=== PATIENT | male | born 1990 | race Caucasian/White ===

== ENCOUNTER 2021-07-05 22:59 | Outpatient (CLI) | payer MEDICAID | END 2021-07-05 23:00 | disposition critical access hospital (66) | LOC: EMS 22:59 | DX: R53.1 Weakness (principal); R50.9 Fever, unspecified; R11.2 Nausea with vomiting, unspecified | CPT/HCPCS: A0425; A0429; A0999 ==

== ENCOUNTER 2021-07-05 23:26 | Emergency (ER) | payer BC, MEDICAID ==
--- NOTE | 2021-07-05 23:34 | ED Physician Documentation ---
History of Present Illness - Stated complaint Stated Complaint: COVID SYMPTOMS - History obtained from History obtained from: Patient - History of Present Illness Timing: How many days ago (3) Pain level now: 0 Improved by: no ameliorating factors Worsened by: no exacerbating factors - Additonal information Additional information: BIBA. Patient c/o COOK SUPERVISOR cough, nausea, vomiting. He says he is an alcoholic, drinks heavily and regularly on a daily basis as well as using kratom on a daily basis. He says he last consumed alcohol last night and last used kratom during the day yesterday. He is COVID vaccinated. He has had sweats/chills and suspects he has had fevers today but did not take his temperature at home Review of Systems Constitutional: reports: Chills, Sweats Cardiac: reports: Reviewed and negative Respiratory: reports: Cough. denies: Dyspnea, Hemoptysis GI: reports: Nausea, Vomiting. denies: Abdominal Pain Neurologic: reports: Headache. denies: Generalized weakness PD PAST MEDICAL HISTORY - Present Medications Home Medications: Ambulatory Orders Medication Instructions Recorded Confirmed Ondansetron Odt [Zofran] 4 mg TL Q6H PRN #14 tablet 07/06/21 chlordiazePOXIDE [Librium] 25 mg PO BID #12 cap 07/06/21 - Allergies Allergies/Adverse Reactions: Allergies Allergy/AdvReac Type Severity Reaction Status Date / Time No Known Drug Allergies Allergy Verified 07/05/21 23:40 - Social History Does the pt drink ETOH?: Yes PD ED PE NORMAL - Vitals Vital signs reviewed: Yes - General General: Alert and oriented X 3, No acute distress (emesis x 2 during H+P), Well developed/nourished - Neck Neck: Supple, no meningeal sign - Cardiac Cardiac: No murmur - Respiratory Respiratory: No respiratory distress, Clear bilaterally - Abdomen Abdomen: Normal bowel sounds, Soft, Non tender, Non distended - Derm Derm: Normal color, Warm and dry - Extremities Extremities: No edema - Neuro Neuro: Alert and oriented X 3, Normal speech Eye Opening: Spontaneous Motor: Obeys Commands Verbal: Oriented GCS Score: 15 PD ED PE EXPANDED - Cardiac Cardiac: Tachy, Regular Rhythm Results - Vitals Vitals: Vital Signs - 24 hr 07/06/21 07/06/21 06:00 06:07 Temperature 37 C 37 C Heart Rate 99 99 Respiratory 20 20 Rate Blood Pressure 128/71 128/71 O2 Saturation 99 99 Oxygen O2 Source Room air - Labs Labs: Laboratory Tests 07/05/21 07/05/21 07/05/21 23:38 23:54 23:54 WBC 7.4 RBC 5.38 Hgb 16.6 Hct 48.0 MCV 89.2 MCH 30.9 MCHC 34.6 RDW 13.1 Plt Count 123 L MPV 9.7 Neut # (Auto) 5.6 Lymph # (Auto) 1.2 L [place] # (Auto) 0.5 Eos # (Auto) 0.0 Baso # (Auto) 0.0 Absolute Nucleated RBC 0.00 Nucleated RBC % 0.0 Sodium 137 Potassium 4.0 Chloride 91 L Carbon Dioxide 20 L Anion Gap 26.0 H BUN 13 Creatinine 1.0 Estimated GFR (MDRD) 88 L Glucose 89 Calcium 8.5 Total Bilirubin 1.1 H AST 193 H ALT 100 H Alkaline Phosphatase 106 Total Protein 7.9 Albumin 4.6 Globulin 3.3 Albumin/Globulin Ratio 1.4 Lipase 55 H Nasal Adenovirus (PCR) NOT DETECTED Nasal B. parapertussis DNA (PCR) NOT DETECTED Nasal Coronavir 229E PCR NOT DETECTED Nasal Coronavir HKU1 PCR NOT DETECTED Nasal Coronavir NL63 PCR NOT DETECTED Nasal Coronavir OC43 PCR NOT DETECTED Nasal Enterovir/Rhinovir PCR NOT DETECTED Nasal Influenza B PCR NOT DETECTED Nasal Influenza A PCR NOT DETECTED Nasal Parainfluen 1 PCR NOT DETECTED Nasal Parainfluen 2 PCR NOT DETECTED Nasal Parainfluen 3 PCR NOT DETECTED Nasal Parainfluen 4 PCR NOT DETECTED Nasal RSV (PCR) NOT DETECTED Nasal B.pertussis DNA PCR NOT DETECTED Nasal C.pneumoniae (PCR) NOT DETECTED Sridhar Human Metapneumo PCR NOT DETECTED Nasal M.pneumoniae (PCR) NOT DETECTED Nasal SARS-CoV-2 (PCR) NOT DETECTED Ethyl Alcohol 07/05/21 23:54 WBC RBC Hgb Hct MCV MCH MCHC RDW Plt Count MPV Neut # (Auto) Lymph # (Auto) [place] # (Auto) Eos # (Auto) Baso # (Auto) Absolute Nucleated RBC Nucleated RBC % Sodium Potassium Chloride Carbon Dioxide Anion Gap BUN Creatinine Estimated GFR (MDRD) Glucose Calcium Total Bilirubin AST ALT Alkaline Phosphatase Total Protein Albumin Globulin Albumin/Globulin Ratio Lipase Nasal Adenovirus (PCR) Nasal B. parapertussis DNA (PCR) Nasal Coronavir 229E PCR Nasal Coronavir HKU1 PCR Nasal Coronavir NL63 PCR Nasal Coronavir OC43 PCR Nasal Enterovir/Rhinovir PCR Nasal Influenza B PCR Nasal Influenza A PCR Nasal Parainfluen 1 PCR Nasal Parainfluen 2 PCR Nasal Parainfluen 3 PCR Nasal Parainfluen 4 PCR Nasal RSV (PCR) Nasal B.pertussis DNA PCR Nasal C.pneumoniae (PCR) Sridhar Human Metapneumo PCR Nasal M.pneumoniae (PCR) Nasal SARS-CoV-2 (PCR) Ethyl Alcohol 385.8 PD MEDICAL DECISION MAKING - ED course Complexity details: reviewed results, re-evaluated patient, considered differential, d/w patient ED course: Patient presents with nausea, vomiting, COOK SUPERVISOR cough. He develops tremulousness during ED stay that improves with benzodiazepines (initially IV lorazepam, transitioned to PO librium). His nausea and vomiting also would improve with benzodiazepines and antinauseants (zofran, phenergan). he is given 2 liters IV NS during ED stay. His blood work is notable for high anion gap with normal serum glucose, mild elevations in bilirubin, AST, ALT, and lipase. His blood ethanol level is markedly elevated at 385. Respiratory panel is negative, including COVID. He initially indicated to me that he is interested in meeting with SW to discuss treatment options, but later in stay he was declining this service and was asking to be discharged home. His symptoms (tremulousness, n/v) were episodic throughout ED but, as noted above, were controlled with repeated doses of medications (as above). He is AAOx3. He describes having been through alcohol withdrawal many times and expresses understanding of return precautions as well as importance of seeking further treatment for his addictions (alcohol, kratom). Prescriptions for zofran and chlordiazepoxide are submitted to [facility] in [place]. I instructed him to not drink any alcohol if he is taking the librium, to follow the taper provided in his discharge instructions, and to return to the ED if the medication is not adequately controlling his symptoms. Departure - Departure Disposition: 01 Home, Self Care Clinical Impression: Alcohol withdrawal Qualifiers: Complication of substance-induced condition: uncomplicated Qualified Code(s): F10.230 - Alcohol dependence with withdrawal, uncomplicated Condition: Good Instructions: ED Withdrawal Alcohol Follow-Up: Shamika Pepe DO [Provider Admit Priv/Credential] - Prescriptions: chlordiazePOXIDE [Librium] 25 mg PO BID #12 cap Ondansetron Odt [Zofran] 4 mg TL Q6H PRN #14 tablet PRN Reason: Nausea / Vomiting Comments: Prescriptions for ondansetron (antinausea medication) and chlordiazepoxide (helps with withdrawal symptoms) have been electronically submitted to [facility] pharmacy in [place] TAKE THE CHLORDIAZEPOXIDE (LIBRIUM) FOLLOWS: 2 TABLETS BY MOUTH TWICE PER DAY FOR TWO DAYS, THEN 1 TABLET BY MOUTH TWICE PER DAY FOR TWO DAYS. DO NOT DRINK ANY ALCOHOL WHILE TAKING THIS MEDICATION. Discharge Date/Time: 07/06/21 08:23
[2021-07-06] MEDS: SODIUM CHLORIDE 0.9% 1,000 ML IV STA ×2 (00:17→00:53)
[2021-07-06] MEDS: ONDANSETRON 4 MG/2 ML VIAL IVP STA ×2 (00:17→02:15)
[2021-07-06 00:20] LABS: BASOPHILS % (AUTO) 0.5 %; EOSINOPHILS % (AUTO) 0.1 %; HGB - HEMOGLOBIN 16.6 g/dL (14.0-18.0); LYMPHOCYTES # (AUTO) 1.2 10^3/uL (1.5-3.5); LYMPHOCYTES % (AUTO) 15.9 %; MEAN CORPUSCULAR HEMOGLOBIN 30.9 pg (27.0-31.0); MEAN CORPUSCULAR HGB CONC 34.6 g/dL (32.0-36.0); MEAN CORPUSCULAR VOLUME 89.2 fL (80.0-94.0); MEAN PLATELET VOLUME 9.7 fL (7.4-11.4); MONOCYTES # (AUTO) 0.5 10^3/uL (0.0-1.0); MONOCYTES % (AUTO) 7.3 %; NEUTROPHILS # (AUTO) 5.6 10^3/uL (1.5-6.6); NEUTROPHILS % (AUTO) 75.8 %; PLT - PLATELET COUNT 123 10^3/uL (130-450); RED BLOOD COUNT 5.38 10^6/uL (4.70-6.10); RED CELL DISTRIBUTION WIDTH 13.1 % (12.0-15.0); WHITE BLOOD COUNT 7.4 x10^3/uL (4.8-10.8)
[2021-07-06 00:29] LABS: ALBUMIN 4.6 g/dL (3.2-5.5); ALBUMIN/GLOBULIN RATIO 1.4 (1.0-2.2); BILIRUBIN,TOTAL 1.1 mg/dL (0.2-1.0); CALCIUM 8.5 mg/dL (8.5-10.3); TOTAL PROTEIN 7.9 g/dL (6.7-8.2)
[2021-07-06] MEDS ORDERED: PROMETHAZINE 25 MG/1 ML VIAL ONE (00:46)
[2021-07-06] MEDS: LORazepam 2 MG/ML VIAL IVP STA ×2 (00:52→02:09)
[2021-07-06] MEDS: PROMETHAZINE INJ 25 MG in SODIUM CHLORIDE 0.9% 50 ML IV STA (00:53)
[2021-07-06 00:57] LABS: B. PARAPERTUSSIS- RESP PCR PAN NOT DETECTED; B. PERTUSSIS- RESP PCR PANEL NOT DETECTED; C. PNEUMONIAE- RESP PCR PANEL NOT DETECTED; CORONAVIRUS 229E-RESP PCR NOT DETECTED; CORONAVIRUS HKU1-RESP PCR NOT DETECTED; CORONAVIRUS NL63-RESP PCR NOT DETECTED; CORONAVIRUS OC43-RESP PCR NOT DETECTED; HUMAN METAPNEUMOVIRUS NOT DETECTED; INFLUENZA A- RESP PCR PANEL NOT DETECTED; INFLUENZA B - RESP PCR PANEL NOT DETECTED; M. PNEUMONIAE- RESP PCR PANEL NOT DETECTED; PARAINFLUENZA VIRUS 1 NOT DETECTED; PARAINFLUENZA VIRUS 2 NOT DETECTED; PARAINFLUENZA VIRUS 3 NOT DETECTED; PARAINFLUENZA VIRUS 4 NOT DETECTED; RHINOVIRUS/ENTEROVIRUS NOT DETECTED; RSV- RESP PCR PANEL NOT DETECTED; SARS-CoV-2 -RESP PCR PANEL NOT DETECTED
[2021-07-06] MEDS: chlordiazePOXIDE 25 MG CAPSULE PO STA ×3 (03:53→07:25)
[2021-07-06 06:07] VITALS: BP 128/71
[2021-07-06] MEDS: ONDANSETRON ODT 4 MG TABLET TL STA (07:24)
== END 2021-07-06 08:23 | disposition home or self-care (01) ==
LOC: EDUNIT# → ED 23:26
DX: F10.230 Alcohol dependence with withdrawal, uncomplicated (principal); Z20.822 Contact with and (suspected) exposure to COVID-19
CPT/HCPCS: 0202U; 36415; 80053; 80320; 83690; 85025; 96365; 96375; 96376; 99283; A9270; J2060; J7040; Q0162

== ENCOUNTER 2021-10-08 10:56 | Emergency (ER) | payer MEDICAID ==
[2021-10-08 11:08] VITALS: BP 146/93
--- NOTE | 2021-10-08 11:38 | ED Physician Documentation ---
History of Present Illness - Stated complaint Stated Complaint: RX REFILL - Chief complaint Chief Complaint: General - History obtained from History obtained from: Patient - History of Present Illness Timing: Today Pain level max: 0 Pain level now: 0 - Additonal information Additional information: Patient is a 31-year-old male who presents to the emergency department requesting a refill of his Prozac. 40 mg p.o. daily. He has 2 pills left. Otherwise asymptomatic. Nothing makes it better or worse. Review of Systems Constitutional: denies: Fever, Chills GI: denies: Nausea, Vomiting, Diarrhea Skin: denies: Rash Musculoskeletal: denies: Neck pain, Back pain Neurologic: denies: Headache PD PAST MEDICAL HISTORY - Past Medical History Cardiovascular: Hypertension - Past Surgical History Past Surgical History: No - Present Medications Home Medications: Ambulatory Orders Medication Instructions Recorded Confirmed Ondansetron Odt [Zofran] 4 mg TL Q6H PRN #14 tablet 07/06/21 chlordiazePOXIDE [Librium] 25 mg PO BID #12 cap 07/06/21 Fluoxetine HCl [Prozac] 40 mg PO DAILY #30 cap 10/08/21 - Allergies Allergies/Adverse Reactions: Allergies Allergy/AdvReac Type Severity Reaction Status Date / Time No Known Drug Allergies Allergy Verified 10/08/21 11:08 - Social History Does the pt smoke?: Yes Smoking Status: Current every day smoker Does the pt drink ETOH?: Yes Does the pt have substance abuse?: Yes - Immunizations Immunizations are current?: Yes PD ED PE NORMAL - Vitals Vital signs reviewed: Yes - General General: Alert and oriented X 3, No acute distress - HEENT HEENT: Moist mucous membranes - Neck Neck: Supple, no meningeal sign - Cardiac Cardiac: RRR - Respiratory Respiratory: No respiratory distress, Clear bilaterally - Derm Derm: Warm and dry - Neuro Neuro: Alert and oriented X 3 - Psych Psych: Normal mood, Normal affect Results - Vitals Vitals: Vital Signs - 24 hr 10/08/21 11:04 Temperature 36.3 C L Heart Rate 89 Respiratory 18 Rate Blood Pressure 146/93 H O2 Saturation 98 Oxygen O2 Source Room air PD MEDICAL DECISION MAKING - ED course Complexity details: considered differential, d/w patient ED course: Patient's medication was refilled. He will follow up with his doctor for further refills. Patient asymptomatic otherwise. This document was made in part using voice recognition software. While efforts are made to proofread this document, sound alike and grammatical errors may occur. Departure - Departure Disposition: 01 Home, Self Care Clinical Impression: Medication refill Condition: Good Instructions: ED Screening Exam Medical Nonurgent Follow-Up: [facility] [Provider Group] [facility] [Provider Group] Prescriptions: Fluoxetine HCl [Prozac] 40 mg PO DAILY #30 cap Comments: Your prescription was sent to [facility] in [place]. Please follow-up with your doctor for further medication refills. A list of clinics was given to you today. Discharge Date/Time: 10/08/21 11:47
== END 2021-10-08 11:47 | disposition home or self-care (01) ==
LOC: ED 10:56
DX: Z76.0 Encounter for issue of repeat prescription (principal); F17.200 Nicotine dependence, unspecified, uncomplicated
CPT/HCPCS: 99281

== ENCOUNTER 2021-10-13 15:08 | Emergency (ER) | payer MEDICAID ==
[2021-10-13 15:18] VITALS: BP 141/84
--- NOTE | 2021-10-13 15:28 | ED Physician Documentation ---
PD HPI MHE - Stated complaint Stated Complaint: MHE - Chief complaint Chief Complaint: MHE - History obtained from History obtained from: Patient - History of Present Illness Primary symptom: Anxiety, Out of meds (The patient had long history of alcoholism and was recently in alcohol detox and [facility] and discharged 4 days 10 days ago. Prescribed gabapentin for a week. He states it did help his anxi ety and curb his alcohol desires. He was given a follow-up referral but unable to get an appointment as yet.) Timing - onset: How many days ago Contributing factors: Substance abuse - ETOH (with recent detox) Similar symptoms before: Diagnosis (anxiety and alcoholism, depression) Recently seen: Clinic Review of Systems Constitutional: denies: Fever Nose: denies: Rhinorrhea / runny nose, Congestion Throat: denies: Sore throat Respiratory: denies: Cough GI: denies: Abdominal Pain, Nausea, Vomiting, Diarrhea Psychiatric: reports: Anxiety, Insomnia. denies: Depressed, Suicidal PD PAST MEDICAL HISTORY - Past Medical History Cardiovascular: Hypertension Respiratory: None Neuro: None Endocrine/Autoimmune: None GI: None : None HEENT: None Psych: Depression, Anxiety, Other Musculoskeletal: None Derm: None - Past Surgical History Past Surgical History: No Ortho: Other - Present Medications Home Medications: Ambulatory Orders Medication Instructions Recorded Confirmed Fluoxetine HCl [Prozac] 40 mg PO DAILY #30 cap 10/08/21 10/13/21 Buprenorphine HCl/Naloxone HCl 1 film ORAL BID 10/13/21 10/13/21 [Suboxone 8 mg-2 mg Sl Film] Gabapentin [Neurontin] 300 mg PO TID 20 Days #60 cap 10/13/21 - Allergies Allergies/Adverse Reactions: Allergies Allergy/AdvReac Type Severity Reaction Status Date / Time No Known Drug Allergies Allergy Verified 10/13/21 15:12 - Social History Does the pt smoke?: No Smoking Status: Former smoker Does the pt drink ETOH?: No Does the pt have substance abuse?: No - Immunizations Immunizations are current?: Yes PD ED PE NORMAL - Vitals Vital signs reviewed: Yes - General General: Alert and oriented X 3, Well developed/nourished, Other (somewhat anxious. ) - Cardiac Cardiac: RRR, No murmur - Respiratory Respiratory: Clear bilaterally - Derm Derm: Normal color, Warm and dry - Extremities Extremities: Normal ROM s pain - Neuro Neuro: Alert and oriented X 3, No motor deficit, Normal speech Results - Vitals Vitals: Vital Signs - 24 hr 10/13/21 15:13 Temperature 36 C L Heart Rate 74 Respiratory 18 Rate Blood Pressure 141/84 H O2 Saturation 100 Oxygen O2 Source Room air PD MEDICAL DECISION MAKING - ED course Complexity details: reviewed old records ([facility] reviewed with suboxone and other anxiety meds through primary providers only. ), considered differential, d/w patient Departure - Departure Disposition: Home, Self Care Clinical Impression: Anxiety, Medication refill Condition: Stable Record reviewed to determine appropriate education?: Yes Follow-Up: [facility] [Provider Group] Prescriptions: Gabapentin [Neurontin] 300 mg PO TID 20 Days #60 cap Comments: I can write a prescription for you for the gabapentin 300 mg 3 times a day since it was doing okay for you for your withdrawal and anxiety. Try to stay with those doses. If you are still feeling anxious or having trouble sleeping at night you can add in [id number] Benadryl 25 mg if needed. Stay well-hydrated. Continue your other usual medications. Congratulations on being sober and continue to avoid alcohol. Follow-up with the referral given to you from the detox facility. I also wrote the name of one of the other provider groups on the [facility]. Call and see if they have any appointments or take your insurance. They do have an office on the [facility] in [place] as well. I transmitted your prescriptions to [facility] in [place].
[2021-10-13] MEDS: GABAPENTIN 100 MG CAPSULE PO STA (16:24)
== END 2021-10-13 16:27 | disposition home or self-care (01) ==
LOC: ED 15:08
DX: F41.9 Anxiety disorder, unspecified (principal); Z76.0 Encounter for issue of repeat prescription; Z87.891 Personal history of nicotine dependence
CPT/HCPCS: 99282; A9270

== ENCOUNTER 2021-10-14 11:18 | Emergency (ER) | payer MEDICAID ==
[2021-10-14 11:33] VITALS: BP 122/75
--- NOTE | 2021-10-14 11:52 | ED Physician Documentation ---
History of Present Illness - Stated complaint Stated Complaint: ANX,MED REFILL - Chief complaint Chief Complaint: General - History obtained from History obtained from: Patient - History of Present Illness Timing: Yesterday - Additonal information Additional information: 31-year-old male with a history of alcohol abuse has gone through treatment and was prescribed gabapentin at discharge. He is on suboxone and has a prescriber who asked him to take his usual dose of the gabapentin. Patient is has usually taken 600 mg tablets and has taken 1800 to 2400 mg. He was prescribed 300 mg daily. He ran out of this prescription early. He has had success at using gabapentin for treatment of anxiety and he came to the emergency department yesterday to see Dr. Mccall and Dr. Mccall refilled a prescription for gabapentin for the patient. The pharmacy refused to fill the prescription as he had run out early from his previous prescription. The patient indicates that this medication has been effective at help with anxiety as well as helping with cravings for alcohol. He is currently sober 14 days and wants to continue sobriety. Review of Systems Constitutional: denies: Fever Ears: denies: Ear pain Nose: denies: Congestion Throat: denies: Sore throat Respiratory: denies: Cough GI: denies: Vomiting PD PAST MEDICAL HISTORY - Past Medical History Cardiovascular: Hypertension Respiratory: None Neuro: None Endocrine/Autoimmune: None GI: None : None HEENT: None Psych: Depression, Anxiety, Other Musculoskeletal: None Derm: None - Past Surgical History Past Surgical History: No Ortho: Other - Present Medications Home Medications: Ambulatory Orders Medication Instructions Recorded Confirmed Fluoxetine HCl [Prozac] 40 mg PO DAILY #30 cap 10/08/21 10/13/21 Buprenorphine HCl/Naloxone HCl 1 film ORAL BID 10/13/21 10/13/21 [Suboxone 8 mg-2 mg Sl Film] Gabapentin [Neurontin] 300 mg PO TID 20 Days #60 cap 10/13/21 - Allergies Allergies/Adverse Reactions: Allergies Allergy/AdvReac Type Severity Reaction Status Date / Time No Known Drug Allergies Allergy Verified 10/14/21 11:33 - Social History Does the pt smoke?: No Smoking Status: Never smoker Does the pt drink ETOH?: No Does the pt have substance abuse?: No - Immunizations Immunizations are current?: Yes PD ED PE NORMAL - Vitals Vital signs reviewed: Yes (Normal) - General General: Alert and oriented X 3, No acute distress, Well developed/nourished - HEENT HEENT: Atraumatic, PERRL, EOMI - Neck Neck: Supple, no meningeal sign - Cardiac Cardiac: RRR, No murmur - Respiratory Respiratory: No respiratory distress, Clear bilaterally - Abdomen Abdomen: Soft, Non tender - Back Back: No CVA TTP, No spinal TTP - Derm Derm: Normal color, Warm and dry, No rash - Extremities Extremities: No deformity, No edema - Neuro Neuro: Alert and oriented X 3, court commissioner 2-12 intact, No motor deficit, No sensory deficit, Normal speech Eye Opening: Spontaneous Motor: Obeys Commands Verbal: Oriented GCS Score: 15 - Psych Psych: Normal mood, Normal affect Results - Vitals Vitals: Vital Signs - 24 hr 10/14/21 11:29 Temperature 36.5 C Heart Rate 71 Respiratory 18 Rate Blood Pressure 122/75 O2 Saturation 100 Oxygen O2 Source Room air PD MEDICAL DECISION MAKING - ED course Complexity details: considered differential, d/w patient ED course: 31-year-old male who was used to a higher dose of gabapentin has run out of his prescription early that was inappropriately prescribed to begin with. The patient was unable to get the medication through the pharmacy because of this issue and I have been able to contact the pharmacist to explain the situation and the appropriateness of the prescription. They will work on filling the prescription for the patient. Departure - Departure Disposition: 01 Home, Self Care Clinical Impression: Medication refill, Anxiety Instructions: ED Stress React Follow-Up: [facility] [Provider Group] [facility] [Provider Group] Comments: Ryan I have spoken with the pharmacist at [facility] and they are working on filling your prescription for you. Discharge Date/Time: 10/14/21 12:05
== END 2021-10-14 12:05 | disposition home or self-care (01) ==
LOC: ED 11:18
DX: Z76.0 Encounter for issue of repeat prescription (principal); I10 Essential (primary) hypertension; F41.9 Anxiety disorder, unspecified
CPT/HCPCS: 99281

== ENCOUNTER 2021-10-19 13:49 | Emergency (ER) | payer MEDICAID ==
[2021-10-19 13:56] VITALS: BP 130/70
[2021-10-19] MEDS ORDERED: AMOX/CLAV 875 MG/125 MG TABLET PO STA (14:42)
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
== END 2021-10-19 14:53 | disposition home or self-care (01) ==
LOC: ED 13:49
DX: T22.20XA Burn of second degree of shoulder and upper limb, except wrist and hand, unspecified site, initial encounter (principal); T79.9XXA Unspecified early complication of trauma, initial encounter; L03.114 Cellulitis of left upper limb; I10 Essential (primary) hypertension
CPT/HCPCS: 99282; A9270

== ENCOUNTER 2021-11-14 18:35 | Emergency (ER) | payer MEDICAID ==
[2021-11-14 18:48] VITALS: BP 169/97
[2021-11-14] MEDS ORDERED: FLUoxetine 10 MG CAPSULE PO STA (19:00)
--- NOTE | 2021-11-14 19:02 | ED Physician Documentation ---
History of Present Illness - Stated complaint Stated Complaint: MED REFILL - Chief complaint Chief Complaint: General - History obtained from History obtained from: Patient - Additonal information Additional information: 31-year-old gentleman ran out of Prozac 2 nights ago and requests a refill. He is asymptomatic without SI or HI. Also wonders if he could have a refill for gabapentin. Review of Systems Constitutional: denies: Fever, Chills Cardiac: denies: Chest pain / pressure, Palpitations Neurologic: denies: Generalized weakness, Numbness PD PAST MEDICAL HISTORY - Past Medical History Cardiovascular: Hypertension Respiratory: None Neuro: None Endocrine/Autoimmune: None GI: None : None HEENT: None Psych: Depression, Anxiety, Other Musculoskeletal: None Derm: None - Past Surgical History Past Surgical History: No Ortho: Other - Present Medications Home Medications: Ambulatory Orders Medication Instructions Recorded Confirmed Fluoxetine HCl [Prozac] 40 mg PO DAILY #30 cap 10/08/21 10/19/21 Buprenorphine HCl/Naloxone HCl 1 film ORAL BID 10/13/21 10/19/21 [Suboxone 8 mg-2 mg Sl Film] Amox/Clav 875/125 [Augmentin] 1 each PO Q12H #20 tablet 10/19/21 FLUoxetine [PROzac] 40 mg PO DAILY #60 cap 11/14/21 - Allergies Allergies/Adverse Reactions: Allergies Allergy/AdvReac Type Severity Reaction Status Date / Time No Known Drug Allergies Allergy Verified 11/14/21 18:46 - Social History Does the pt smoke?: No Smoking Status: Never smoker Does the pt drink ETOH?: No Does the pt have substance abuse?: No - Immunizations Immunizations are current?: Yes PD ED PE NORMAL - Vitals Vital signs reviewed: Yes - General General: Alert and oriented X 3, No acute distress - Neck Neck: Supple, no meningeal sign, No bony TTP - Neuro Neuro: Alert and oriented X 3, 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 I did give him a refill of his Prozac and he is encouraged to seek primary care follow-up for further refills and to establish routine care. Departure - Departure Disposition: Home, Self Care Clinical Impression: Medication refill, Anxiety Condition: Good Record reviewed to determine appropriate education?: Yes Instructions: Fluoxetine capsules or tablets Depression/Mood Disorders Follow-Up: Daljit Gonzalez MD [Provider Admit Priv/Credential] - Prescriptions: FLUoxetine [PROzac] 40 mg PO DAILY #60 cap Comments: I sent the prescription to [facility] in [place]. Do your best to establish with a primary care physician. I put the name of the physician doing ER follow- ups for this coming week on this set of discharge instructions and you can call for an appointment. Return for new or worsening symptoms. As discussed by policy we do not refill some medications and gabapentin is 1 of those.
== END 2021-11-14 19:07 | disposition home or self-care (01) ==
LOC: ED 18:35
DX: Z76.0 Encounter for issue of repeat prescription (principal); F41.9 Anxiety disorder, unspecified
CPT/HCPCS: 99281; A9270

== ENCOUNTER 2021-12-14 09:37 | Emergency (ER) | payer MEDICAID ==
--- OUTSIDE RECORDS SUMMARY | 2021-12-14 09:48 | EXTERNAL MEDICAL SUMMARY RPT | Continuity of Care Document ---
:1990 Author Organization [facility] Address [address] [phone] Phone Allergies No information. Encounters No information. Medications No information. Problems date description facility [id number] Detox Evaluation [facility] [id number] Alcohol Intoxication [facility] Results No information.
[2021-12-14 09:52] VITALS: BP 134/85
--- NOTE | 2021-12-14 10:33 | ED Physician Documentation ---
History of Present Illness - Stated complaint Stated Complaint: PRESCRIPTION REFILL - Chief complaint Chief Complaint: General - Additonal information Additional information: Patient is 31-year-old male with past medical significant for major depressive disorder, alcohol abuse presenting to the emergency department requesting medication refill. Reports has been having a difficult time establishing himself with primary care due to changes in his insurance provider. Was seen here for similar symptoms and requesting medication refill October 08, October 13, October 14, November 14. Denies SI, HI or other acute complaints at this time. Review of Systems Ten Systems: 10 systems reviewed and negative Constitutional: denies: Fever GI: denies: Abdominal Pain Psychiatric: denies: Depressed, Suicidal PD PAST MEDICAL HISTORY - Past Medical History Past Medical History: Yes Cardiovascular: Hypertension Respiratory: None Neuro: None Endocrine/Autoimmune: None GI: None : None HEENT: None Psych: Depression, Anxiety, Other Musculoskeletal: None Derm: None - Past Surgical History Past Surgical History: No Ortho: Other - Present Medications Home Medications: Ambulatory Orders Medication Instructions Recorded Confirmed Fluoxetine HCl [Prozac] 40 mg PO DAILY #30 cap 10/08/21 12/14/21 Buprenorphine HCl/Naloxone HCl 1 film ORAL BID 10/13/21 12/14/21 [Suboxone 8 mg-2 mg Sl Film] Fluoxetine HCl [Prozac] 40 mg PO DAILY #30 cap 12/14/21 traZODone [Desyrel] 50 mg PO HS PRN 12/14/21 12/14/21 - Allergies Allergies/Adverse Reactions: Allergies Allergy/AdvReac Type Severity Reaction Status Date / Time No Known Drug Allergies Allergy Verified 12/14/21 09:49 - Social History Does the pt smoke?: No Smoking Status: Never smoker Does the pt drink ETOH?: No Does the pt have substance abuse?: No - Immunizations Immunizations are current?: Yes PD ED PE NORMAL - General General: Alert and oriented X 3 - HEENT HEENT: Atraumatic - Neck Neck: Supple, no meningeal sign - Respiratory Respiratory: No respiratory distress - Male Male : Deferred - Rectal Rectal: Deferred - Derm Derm: Normal color - Extremities Extremities: No deformity - Neuro Neuro: Alert and oriented X 3, 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 Requests refill of his previously prescribed Prozac. Denied any other acute complaints. Denied suicidal or homicidal ideation. Has been seen at the facility multiple times for similar presentations. Strongly encouraged him to establish himself with a primary care doctor. Will discharge with a refill for his regularly prescribed Prozac. Otherwise clear return precautions and follow-up instructions given prior to discharge. Departure - Departure Disposition: 01 Home, Self Care Clinical Impression: Medication refill Prescriptions: Fluoxetine HCl [Prozac] 40 mg PO DAILY #30 cap Comments: Thank you for allowing us to care for you today at [facility]. Your prescription was sent to [facility]. Please continue to work towards establishing yourself with a primary care doctor.If anytime you have any new or worsening symptoms please not hesitate to return.
== END 2021-12-14 11:29 | disposition home or self-care (01) ==
LOC: ED 09:37
DX: Z76.0 Encounter for issue of repeat prescription (principal)
CPT/HCPCS: 99281

== ENCOUNTER 2022-01-15 15:39 | Outpatient (CLI) | payer MEDICAID ==
[2022-01-15 18:52] LABS: BASOPHILS % (AUTO) 0.8 %; HCT - HEMATOCRIT 44.3 % (42.0-52.0); HGB - HEMOGLOBIN 14.8 g/dL (14.0-18.0); LYMPHOCYTES # (AUTO) 1.4 10^3/uL (1.5-3.5); LYMPHOCYTES % (AUTO) 35.9 %; MEAN CORPUSCULAR HEMOGLOBIN 29.4 pg (27.0-31.0); MEAN CORPUSCULAR HGB CONC 33.4 g/dL (32.0-36.0); MEAN CORPUSCULAR VOLUME 88.1 fL (80.0-94.0); MONOCYTES # (AUTO) 0.3 10^3/uL (0.0-1.0); MONOCYTES % (AUTO) 8.6 %; NEUTROPHILS # (AUTO) 2.1 10^3/uL (1.5-6.6); NEUTROPHILS % (AUTO) 53.4 %; PLT - PLATELET COUNT 172 10^3/uL (130-450); RED BLOOD COUNT 5.03 10^6/uL (4.70-6.10); RED CELL DISTRIBUTION WIDTH 12.2 % (12.0-15.0)
[2022-01-15 19:07] LABS: ALBUMIN 4.7 g/dL (3.2-5.5); ALBUMIN/GLOBULIN RATIO 1.7 (1.0-2.2); BILIRUBIN,TOTAL 0.5 mg/dL (0.2-1.0); CALCIUM 8.8 mg/dL (8.5-10.3); POTASSIUM 4.2 mmol/L (3.5-5.0); TOTAL PROTEIN 7.4 g/dL (6.7-8.2)
== END 2022-01-15 23:59 | disposition home or self-care (01) ==
LOC: LAB.S 15:39
PROVIDERS: ATTEND Physician Assistant Medical
DX: Z51.81 Encounter for therapeutic drug level monitoring (principal); Z79.899 Other long term (current) drug therapy
CPT/HCPCS: 36415; 80053; 85025

== ENCOUNTER 2022-05-20 05:30 | Outpatient (CLI) | payer MEDICAID | END 2022-05-20 05:31 | disposition critical access hospital (66) | LOC: EMS 05:30 | DX: R53.81 Other malaise (principal); R63.8 Other symptoms and signs concerning food and fluid intake | CPT/HCPCS: A0425; A0429; A0999 ==

== ENCOUNTER 2022-05-20 06:03 | Emergency (ER) | payer MEDICAID ==
[2022-05-20 07:08] LABS: BASOPHILS # (AUTO) 0.1 10^3/uL (0.0-0.1); BASOPHILS % (AUTO) 0.8 %; EOSINOPHILS # (AUTO) 0.1 10^3/uL (0.0-0.7); HCT - HEMATOCRIT 47.2 % (42.0-52.0); HGB - HEMOGLOBIN 16.3 g/dL (14.0-18.0); LYMPHOCYTES # (AUTO) 1.3 10^3/uL (1.5-3.5); LYMPHOCYTES % (AUTO) 21.2 %; MEAN CORPUSCULAR HEMOGLOBIN 28.6 pg (27.0-31.0); MEAN CORPUSCULAR HGB CONC 34.5 g/dL (32.0-36.0); MEAN CORPUSCULAR VOLUME 82.8 fL (80.0-94.0); MEAN PLATELET VOLUME 9.3 fL (7.4-11.4); MONOCYTES # (AUTO) 0.4 10^3/uL (0.0-1.0); NEUTROPHILS # (AUTO) 4.3 10^3/uL (1.5-6.6); NEUTROPHILS % (AUTO) 70.8 %; PLT - PLATELET COUNT 179 10^3/uL (130-450); RED CELL DISTRIBUTION WIDTH 12.5 % (12.0-15.0); WHITE BLOOD COUNT 6.1 x10^3/uL (4.8-10.8)
[2022-05-20 07:16] LABS: ALBUMIN/GLOBULIN RATIO 1.3 (1.0-2.2); BILIRUBIN,TOTAL 0.8 mg/dL (0.2-1.0); CALCIUM 8.6 mg/dL (8.5-10.3); CREATININE 0.8 mg/dL (0.6-1.2); MAGNESIUM 2.1 mg/dL (1.7-2.8); POTASSIUM 4.1 mmol/L (3.5-5.0)
[2022-05-20] MEDS ORDERED: THIAMINE INJ 100 MG, MAGNESIUM SULFATE 2 GM, MULTIVITAMIN 10 ML, FOLIC ACID INJ 1 MG in... IV ONE ×5 (07:27)
[2022-05-20] MEDS ORDERED: DEXAMETHASONE 10 MG/ML VIAL IVP STA (07:29)
--- NOTE | 2022-05-20 07:33 | ED Physician Documentation ---
History of Present Illness - Stated complaint Stated Complaint: FENTANYL W/D - Chief complaint Chief Complaint: General - History obtained from History obtained from: Patient - History of Present Illness Timing: How many days ago (4) - Additonal information Additional information: 31-year-old Ryan Padron has had a problem with narcotic use for a number of years and he has been on Suboxone and he has been through treatment. He has recently had a relapse and has been using fentanyl. He discontinued the use of the Suboxone while he was using the fentanyl and when he decided to quit he called his prescriber who recommended he take small amounts of Suboxone. He feels he might of taken too much. He does not feel well. He does not have a specific plan for entering treatment. He has not eaten in 4 days. He denies any nausea vomiting diarrhea or sweats associated with this past 4 days. He has not otherwise been ill. Review of Systems Constitutional: reports: Fatigue. denies: Fever, Chills Eyes: denies: Decreased vision Ears: denies: Ear pain Nose: denies: Rhinorrhea / runny nose, Congestion Throat: denies: Sore throat Cardiac: denies: Chest pain / pressure, Palpitations, Pedal edema, Calf pain Respiratory: denies: Dyspnea, Cough, Wheezing GI: denies: Abdominal Pain, Nausea, Vomiting, Constipation, Diarrhea : denies: Dysuria, Frequency Skin: denies: Rash Musculoskeletal: denies: Neck pain, Back pain, Extremity pain Neurologic: reports: Headache. denies: Generalized weakness, Focal weakness, Numbness, Difficulty speaking, Head injury, LOC PD PAST MEDICAL HISTORY - Past Medical History Cardiovascular: Hypertension Respiratory: None Neuro: None Endocrine/Autoimmune: None GI: None : None HEENT: None Psych: Depression, Anxiety, Other Musculoskeletal: Other Derm: None - Past Surgical History Past Surgical History: Yes Ortho: Other - Present Medications Home Medications: Ambulatory Orders Medication Instructions Recorded Confirmed Fluoxetine HCl [Prozac] 40 mg PO DAILY #30 cap 12/14/21 04/16/22 Buprenorphine HCl/Naloxone HCl 04/16/22 [Suboxone 8 mg-2 mg Sl Film] Buspirone HCl 10 mg ORAL DAILY 04/16/22 04/16/22 hydrOXYzine HCL [Hydroxyzine HCl] 50 mg ORAL DAILY 08/06/22 08/06/22 Baclofen [Lioresal] 10 mg PO TID #11 tablet 04/18/22 chlordiazePOXIDE [Librium] 25 mg PO Q6H #15 cap 05/20/22 - Allergies Allergies/Adverse Reactions: Allergies Allergy/AdvReac Type Severity Reaction Status Date / Time No Known Drug Allergies Allergy Verified 04/16/22 23:01 - Social History Does the pt smoke?: No Smoking Status: Never smoker Does the pt drink ETOH?: No Does the pt have substance abuse?: No - Immunizations Immunizations are current?: Yes - POLST Patient has POLST: No PD ED PE NORMAL - Vitals Vital signs reviewed: Yes (bradycardic) - General General: Well developed/nourished, Other (Sommulent 31y/o male answers appropriately, has Flattened affect, delay in execution of motor commands is minor as well as speech latency.) - HEENT HEENT: PERRL, EOMI, Other (Dry mucous membranes and abrasions to the forehead appears several days old) - Neck Neck: Supple, no meningeal sign, No bony TTP - Cardiac Cardiac: RRR, No murmur - Respiratory Respiratory: No respiratory distress, Clear bilaterally - Abdomen Abdomen: Normal bowel sounds, Soft, Non tender, Non distended, No organomegaly - Back Back: No CVA TTP, No spinal TTP - Derm Derm: Normal color, Warm and dry, No rash - Extremities Extremities: No deformity, No edema - 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, No motor deficit, No sensory deficit, Other (Speech latency is present less than 2 seconds) Eye Opening: Spontaneous Motor: Obeys Commands Verbal: Oriented GCS Score: 15 - Psych Psych: Other (Mood is withdrawn and the affect is flat) Results - Vitals Vitals: Vital Signs - 24 hr 05/20/22 05/20/22 05/20/22 06:05 06:13 06:14 Heart Rate 55 L 56 L 55 L Respiratory 18 15 16 Rate Blood Pressure 125/66 125/66 125/66 O2 Saturation 95 93 94 05/20/22 05/20/22 05/20/22 06:50 08:02 11:47 Heart Rate 55 L 57 L 75 Respiratory 16 15 17 Rate Blood Pressure 106/50 L 122/70 124/75 O2 Saturation 97 96 99 Oxygen O2 Source Room air - Labs Labs: Laboratory Tests 05/20/22 05/20/22 06:49 06:49 WBC 6.1 RBC 5.70 Hgb 16.3 Hct 47.2 MCV 82.8 MCH 28.6 MCHC 34.5 RDW 12.5 Plt Count 179 MPV 9.3 Neut # (Auto) 4.3 Lymph # (Auto) 1.3 L Williams # (Auto) 0.4 Eos # (Auto) 0.1 Baso # (Auto) 0.1 Absolute Nucleated RBC 0.00 Nucleated RBC % 0.0 Sodium 135 Potassium 4.1 Chloride 94 L Carbon Dioxide 21 Anion Gap 20.0 H BUN 15 Creatinine 0.8 Estimated GFR (MDRD) 114 Glucose 104 H Calcium 8.6 Magnesium 2.1 Total Bilirubin 0.8 AST 431 H ALT 300 H Alkaline Phosphatase 63 Total Protein 7.0 Albumin 4.0 Globulin 3.0 Albumin/Globulin Ratio 1.3 Lipase 26 Procedures - IVC sono (time) 0728 Bedside IVC sono: IVC measures (cm) (1.14), IVC collapsed c insp (cm) (complete), Dehydration (est >1 liter deficit.) PD MEDICAL DECISION MAKING - ED course Complexity details: reviewed old records, reviewed results, re-evaluated patient, considered differential, d/w patient ED course: 31-year-old male with a history of narcotic abuse on Suboxone has had a relapse is back on Suboxone feels quite unwell. He is found to be a bit dehydrated on interrogation the inferior vena cava and he is administered a banana bag and 10 mg of dexamethasone. This did almost nothing for his symptoms. We did administer a dose of buprenorphine and this helped a lot. He wanted to go home. He did admit to excessive alcohol use and we administered librium and provided a script. Departure - Departure Disposition: 01 Home, Self Care Clinical Impression: Withdrawal symptoms, drug or narcotic Qualifiers: Substance type: opioid Qualified Code(s): F11.93 - Opioid use, unspecified with withdrawal Condition: Stable Instructions: ED Withdrawal Alcohol, ED Withdrawal Narcotic Follow-Up: Susan Gregg PA-C [Provider Admit Priv/Credential] - Prescriptions: chlordiazePOXIDE [Librium] 25 mg PO Q6H #15 cap Comments: Ryan, today it looks like you are having symptoms of withdrawal likely both from narcotic and alcohol. My recommendation is to abstain from both of these and to use the Librium for alcohol withdrawal as you have previously done. Follow-up with your prescriber regarding further treatment of the narcotic withdrawal. A prescription for your use for alcohol withdrawal has been E scri bed to the [facility] in [place]. Discharge Date/Time: 05/20/22 11:49
[2022-05-20] MEDS ORDERED: BUPRENORPHINE 0.3 MG/ML VIAL IVP ONE (09:46)
[2022-05-20] MEDS ORDERED: chlordiazePOXIDE 25 MG CAPSULE PO STA (11:32)
[2022-05-20 11:49] VITALS: BP 124/75
== END 2022-05-20 11:49 | disposition home or self-care (01) ==
LOC: EDUNIT# → ED 06:03
DX: F11.93 Opioid use, unspecified with withdrawal (principal); I10 Essential (primary) hypertension
CPT/HCPCS: 36415; 80053; 83690; 83735; 85025; 96365; 96375; 99283; 99284; A9270; J0592; J3411